=== PATIENT | female | born 1950 | race Caucasian/White ===

== ENCOUNTER 2022-03-20 14:05 | Emergency (ER) | payer MEDICARE, BC, SELFPAY ==
[2022-03-20 14:35] VITALS: BP 116/82; PULSE 69; RESP 18; TEMP 36.1; O2SAT 99; BMI 28.5
--- NOTE | 2022-03-20 18:06 | ED_ITS ---
HPI - Nausea/Vomiting/Diarrhea General Time Seen by Provider: 18:06 Date Seen: 03/20/22 Chief complaint: Nausea/Vomiting Stated complaint: Upset stomach since Time Seen by Provider: 03/20/22 18:06 Source: patient, RN notes reviewed and old records reviewed Mode of arrival: ambulatory Limitations: no limitations History of Present Illness HPI Narrative: Alma is a very pleasant female with a history of chronic back pain and neuropathy on Tylenol No. 3 as well as history of course spinal cord stimulator who comes to the emergency room with abdominal pain. Patient notes that she has been doing well until morning 1124. She states she woke up with an upset stomach that has been persistent since that time and waxing and waning. Patient denies any diarrhea. She has not been eating very much. She has tried to eat small amounts but she has significant nausea. She denies any fever but describes periods of hot flashes when she has to run outside. She is also tender across the upper aspect of her belly. She denies any distension or history of abdominal surgeries. She has not had any urinary pain but does describe urgency. She states she is otherwise healthy. Patient notes pain occasionally radiates around to her back. Denies any respiratory type symptoms. Associated nausea: Yes Related Data Home Medications Medication Instructions Recorded Confirmed acetaminophen 300 mg-codeine 30 mg 2 tab PO Q6H 03/20/22 03/20/22 tablet cyclobenzaprine 10 mg tablet 10 mg PO Q8H PRN 03/20/22 03/20/22 folic acid 1 mg tablet 1 mg PO DAILY 03/20/22 03/20/22 levothyroxine 50 mcg tablet 50 mcg PO DAILY 03/20/22 03/20/22 methotrexate sodium 2.5 mg tablet 10 mg PO .weekly 03/20/22 03/20/22 pilocarpine HCl 7.5 mg tablet 7.5 mg PO TID 03/20/22 03/20/22 pregabalin 150 mg capsule 150 mg PO Q8H 03/20/22 03/20/22 trazodone 50 mg tablet 50 mg PO DAILY 03/20/22 03/20/22 venlafaxine 37.5 mg 37.5 mg PO DAILY 03/20/22 03/20/22 capsule,extended release 24 hr Allergies Allergy/AdvReac Type Severity Reaction Status Date / Time No Known Drug Allergies Allergy Verified 03/20/22 19:48 Review of Systems Status of ROS: Reports: 10 or more systems reviewed and unremarkable except as noted in History and below Const: Reports: fatigue; Denies: fever or chills ENMT: Denies: throat pain or difficulty swallowing Cardio: Denies: chest pain, palpitations, swelling of feet/ankles, lightheadedness or shortness of breath with exertion Resp: Denies: shortness of breath or cough GI: Reports: abdominal pain and nausea; Denies: vomiting, diarrhea or difficulty swallowing : Reports: urinary frequency; Denies: painful urination Musculo: Reports: back pain (Chronic.) Neuro: Denies: headache, numbness in extremities or weakness in extremities Endo: Reports: fatigue PFSH PFSH Social History Smoking Status: Unknown if ever smoked Exam 2 Narrative: Exam Narrative: Patient is alert and oriented. She presents with her friend. Eyes are clear and oral cavity with moist mucous membranes. Face is symmetrical. No erythema or exudate in the posterior oropharynx. Neck is supple without lymphadenopathy Heart with regular rate and rhythm lungs are clear in all lung michele. Abdomen is soft but patient does have tenderness over the epigastrium and right upper quadrant. No significant rebound tenderness Lower extremities without edema. No evidence of pulsating mass in the abdomen and pedal pulses are intact and symmetrical Const: Vital Signs, click to edit/add: Vital Signs - 24 hr 03/20/22 14:35 03/20/22 21:52 Temperature 96.9 F L Pulse Rate [Right Pulse Oximeter] 69 65 Respiratory Rate 18 Blood Pressure [Ri ght Upper Arm] 116/82 145/77 H Pulse Oximetry 99 99 Oxygen Delivery Me thod Room Air Room Air Documenting provider has reviewed patient's vital signs: yes Course Course Hospital Course: Patient presents with 5 days of upper abdominal pain associated with anorexia and nausea. Will have an IV placed and check CBC, comprehensive panel, CRP, amylase, lipase, urinalysis. I suspect that she will be in need of a CT. For pain will give morphine 4 mg and Zofran 4 mg. Reevaluation(s) Reevaluation #1: Patient notes that she has improved with her pain medications. Laboratory values note normal kidney function therefore will proceed with abdominal CT with contrast. Reevaluation #2: Patient requesting further pain medications. Dilaudid 0.25 mg and Ativan 0.25 mg given with relief. Ultrasound pending Vital Signs Vital signs: Initial Vital Signs Temperature 96.9 F L 03/20/22 14:35 Temperature Source Temporal Artery Scan 03/20/22 14:35 Pulse Rate 69 03/20/22 14:35 Respiratory Rate 18 03/20/22 14:35 Blood Pressure 116/82 03/20/22 14:35 Blood Pressure Mean 93 03/20/22 14:35 Blood Pressure Position Sitting 03/20/22 14:35 Pulse Oximetry 99 03/20/22 14:35 Oxygen Delivery Method 03/20/22 14:35 Vital Signs Temperature 96.9 F L 03/20/22 14:35 Pulse Rate 69 03/20/22 14:35 Respiratory Rate 18 03/20/22 14:35 Blood Pressure 116/82 03/20/22 14:35 Pulse Oximetry 99 03/20/22 14:35 Oxygen Delivery Method 03/20/22 14:35 Temperature 96.9 F L 03/20/22 14:35 Pulse Rate 65 03/20/22 21:52 Respiratory Rate 18 03/20/22 14:35 Blood Pressure 145/77 H 03/20/22 21:52 Pulse Oximetry 99 03/20/22 21:52 Oxygen Delivery Method 03/20/22 21:52 MDM - Nausea/Vomiting/Diarrhea MDM Narrative Medical decision making narrative: 1. Abdominal pain-differential diagnosis does include biliary pop colic. CT showed distended gallbladder but no evidence of gallbladder wall thickening or pericholecystic fluid. Follow-up ultrasound showed large gallbladder and common bile duct at the upper limits of normal. I had the pleasure of consulting with Dr. Vera our surgeon here. At this time patient is tender to the touch but laboratory values again are very reassuring. Would recommend HIDA scan for to [facility] and follow-up with Dr. Vera. I did speak to Alma about staying tonight but she wishes to go home. I think this is reasonable as she has gotten fluids and has not had any vomiting. I will switch her from Tylenol No. 3 to hydrocodone temporarily. [place] 5/3 25 1-2 tablets p.o. q.4-6 hours p.r.n. pain 10. Via instant med[facility] with no refills. I have placed an order for a HIDA scan and told Alma that she will be called in the morning. She should also have a follow-up appoint with Dr. Vera. If however she has worsening symptoms such as fever, vomiting worsening pain would ask that she return to the emergency room for further evaluation. 2. Disposition -home at this time with her friend. Medical Records Attestation: I reviewed the patient's medical records. Lab Data Attestation: I reviewed the patient's lab results. Labs: Lab Results 03/20/22 03/20/22 03/20/22 Range/Units 18:31 18:40 18:40 WBC 10.05 (4.50-11.00) K/uL RBC 4.83 (4.00-5.20) m/uL Hgb 13.9 (12.0-16.0) gm/dL Hct 42.1 (33.0-51.0) % MCV 87 (80-100) fL MCH 29 (26-34) pg MCHC 33 (32-36) gm/dL RDW Coeff of Ricky 15.2 (11.5-15.5) % Plt Count 423 (140-440) K/uL Neut % (Auto) 49.4 (42.0-72.0) % Lymph % (Auto) 41.2 (20-44) % [place] % (Auto) 8.2 (0.0-11.0) % Eos % (Auto) 0.5 (0.0-7.0) % Baso % (Auto) 0.4 (0.0-3.0) % Neut # (Auto) 4.97 (1.7-7.0) K/uL Lymph # (Auto) 4.14 H (0.90-2.90) K/uL [place] # (Auto) 0.80 (0.00-0.90) K/UL Eos # (Auto) 0.05 (0.00-0.50) K/uL Baso # (Auto) 0.04 (0.00-0.30) K/uL Abs Immat Gran (auto) 0.03 (0.00-0.30) K/uL Imm/Tot Granulo (auto) 0.3 % Sodium 139 (135-149) mmol/L Potassium 3.3 L (3.6-5.1) mmol/L Chloride 102 (96-114) mmol/L Carbon Dioxide 25 (20-32) mmol/L BUN 17 (7-30) mg/dL Creatinine 0.6 (0.5-1.5) mg/dL Estimated Creat Clear 43.27 Estimated GFR 95 ml/min Glucose 97 (60-115) mg/dL Calcium 9.6 (8.4-10.6) mg/dL Total Bilirubin 0.9 (0.1-1.5) mg/dL AST 29 (12-35) U/L ALT 22 (4-35) U/L Alkaline Phosphatase 121 (40-150) U/L C-Reactive Protein 0.5 (0.5-1.0) mg/dL Total Protein 8.3 (6.0-8.3) g/dL Albumin 5.1 H (3.3-5.0) g/dL Amylase 53 (18-89) U/L Lipase 45 (23-300) U/L Urine Color Yellow (Yellow) Urine Appearance Clear (Clear) Urine pH 5.5 (5.0-8.5) Ur Specific [place] 1.020 (1.000-1.030) Urine Protein Negative (Negative) Urine Glucose (UA) Negative (Negative) Urine Ketones 2+ A (Negative) Urine Blood 2+ A (Negative) Urine Nitrite Negative (Negative) Urine Bilirubin Negative (Negative) Urine Urobilinogen 0.2 (0.2-1.0) Ur Leukocyte Esterase Negative (Negative) Urine RBC 0-2 (0-2) Urine WBC 0-2 (0-5) Ur Squamous Epith Cells None (None-Few) Urine Bacteria None (None) Imaging Data CT scan - abdomen: Attestation: I have reviewed the pertinent imaging results. Radiologist's impression: [place] [address] Diagnostic Imaging Report Patient: Alma Jacobs MR#: [id number] : 1950 Acct:[id number] Loc: ED Service Date: 03/20/[address]: Ordering Physician: Bettye Amaro MD Date of Service: 03/20/22 Procedure(s): CT abdomen pelvis w con Accession Number(s): [id number] cc: Bettye Amaro MD~ For Patients:? As a result of the Century Cures Act, medical imaging exams and procedure reports are released immediately into your electronic medical record.? You may view this report before your referring provider.? If you have questions, please contact your health care provider. INDICATION: Stomach pain. TECHNIQUE: CT abdomen and pelvis acquired with 81 mL Isovue 370 IV contrast. Coronal and sagittal reformats were generated. COMPARISON: None. FINDINGS: Lower chest: Unremarkable. Liver: Unremarkable. Gallbladder and bile ducts: Distended gallbladder. No radiopaque stones. No wall thickening or pericholecystic fluid. Spleen: Unremarkable. Pancreas: Diffuse atrophy. No ductal dilation. Adrenal glands: Unremarkable. No nodules. Kidneys and Ureters: Unremarkable. No suspicious masses, stones, or hydronephrosis. Lymph Nodes and Retroperitoneum: Unremarkable. Vasculature: Unremarkable. GI tract: Unremarkable. Normal in caliber. Diverticula project from the colon, without inflammatory changes to suggest diverticulitis. Peritoneum/Abdominal Wall: Unremarkable. No free air or free fluid. Pelvic Viscera: Exophytic hypodensity projecting from the anterior uterus is probably a fibroid. Smaller posterior lesion also projects exophytically, likely a fibroid. Bladder: Unremarkable. Bones: Unremarkable for age. Spinal stimulator device has its battery pack in the left posterior subcutaneous tissues. IMPRESSION: No significant CT abnormality or findings to explain the cause of the patient`s symptoms. Please note that all CT scans at this facility use dose modulation, iterative reconstruction, and/or weight-based dosing when appropriate to reduce radiation dose to as low as reasonably achievable. US - abdomen: Attestation: I have reviewed the pertinent imaging results. Radiologist's impression: Liver: Mild diffuse increased hepatic echogenicity. No suspicious masses.? No intrahepatic biliary dilatation.? Gallbladder: Hydropic. No stones or sludge.? Normal wall thickness.? No pericholecystic fluid. Negative sonographic Chandler`s sign per the in home sales representative. Common bile duct: 8 mm, at upper limits of normal.? Pancreas: Unremarkable.? Right kidney: Normal in size.? Normal echotexture and cortex.? No suspicious masses, stones, or hydronephrosis. Vasculature: Proximal abdominal aorta and IVC are unremarkable.? IMPRESSION: Hydropic gallbladder without cholelithiasis or evidence of cholecystitis. 8 mm common bile duct, which is at the upper limits of normal for the patient`s age. Cannot entirely exclude choledocholithiasis. MRCP is available if clinical concern persists. Discharge Plan Discharge Clinical Impression: Abdominal pain Patient Disposition: Home, Self-Care Condition: Improved Additional Instructions: . Tylenol with codeine. You may use hydrocodone which is also known as [place] or Vicodin and consists of the narcotic hydrocodone and acetaminophen or Tylenol. Await phone call tomorrow for appointment for HIDA scan and follow up with Dr. Vera surgeon or 1 of her colleagues tomorrow. If you start running a fever or have worsening symptoms return to the emergency room. Prescriptions: No Action acetaminophen-codeine 300-30 mg tablet 2 tab PO Q6H Label Comments: TAKE ONE OR TWO TABLETS BY MOUTH THREE TIMES DAILY NEEDED FOR PAIN. DO NOT EXCEED 4000MG OF ACETAMINOPHEN IN 24 HOURS cyclobenzaprine 10 mg tablet 10 mg PO Q8H PRN Label Comments: TAKE ONE TABLET BY MOUTH TWICE DAILY NEEDED folic acid 1 mg tablet 1 mg PO DAILY Label Comments: TAKE ONE TABLET BY MOUTH ONE TIME DAILY levothyroxine 50 mcg tablet 50 mcg PO DAILY Label Comments: TAKE ONE TABLET BY MOUTH ONE TIME DAILY methotrexate sodium 2.5 mg tablet 10 mg PO .weekly Label Comments: TAKE 4 TABLETS BY MOUTH ONCE WEEKLY. pilocarpine HCl 7.5 mg tablet 7.5 mg PO TID Label Comments: TAKE ONE TABLET BY MOUTH THREE TIMES DAILY pregabalin 150 mg capsule 150 mg PO Q8H Label Comments: TAKE ONE CAPSULE BY MOUTH THREE TIMES DAILY trazodone 50 mg tablet 50 mg PO DAILY Label Comments: TAKE ONE OR TWO TABLETS BY MOUTH DAILY AT BEDTIME venlafaxine 37.5 mg capsule,extended release 24hr 37.5 mg PO DAILY Label Comments: TAKE ONE CAPSULE BY MOUTH ONE TIME DAILY WITH A MEAL. Stand Alone Forms: [email or web address] Info Instructions
[2022-03-20] MEDS: ONDANSETRON 2 MG/ML inj 4 MG IVP (18:48)
[2022-03-20] MEDS: MORPHINE 4 MG/ML INJ IVP (18:48)
[2022-03-20] MEDS: 0.9 % SODIUM CHLORIDE 1000 ml 1,000 ML IV (18:48)
[2022-03-20 19:12] LABS: Albumin* 5.1 g/dL (3.3-5.0); Chloride* 102 mmol/L (96-114); Sodium* 139 mmol/L (135-149)
[2022-03-20 19:13] LABS: Potassium* 3.3 mmol/L (3.6-5.1)
[2022-03-20 19:15] LABS: Amylase* 53 U/L (18-89); Carbon Dioxide* 25 mmol/L (20-32); Creatinine* 0.6 mg/dL (0.5-1.5); Est. Creatinine Clearance* 43.27; Estimated Glomerular Filt Rate 95 ml/min
[2022-03-20 19:16] LABS: Alanine Aminotransferase* 22 U/L (4-35); Alkaline Phosphatase* 121 U/L (40-150); Aspartate Amino Transferase* 29 U/L (12-35); Bilirubin Total* 0.9 mg/dL (0.1-1.5); Blood Urea Nitrogen* 17 mg/dL (7-30); Calcium* 9.6 mg/dL (8.4-10.6); Glucose* 97 mg/dL (60-115); Lipase* 45 U/L (23-300); Total Protein* 8.3 g/dL (6.0-8.3)
[2022-03-20 19:18] LABS: C Reactive Protein* 0.5 mg/dL (0.5-1.0)
[2022-03-20 19:28] LABS: Basophils Absolute Auto 0.04 K/uL (0.00-0.30); Basophils Percent Auto 0.4 % (0.0-3.0); Eosinophils Absolute Auto 0.05 K/uL (0.00-0.50); Eosinophils Percent Auto 0.5 % (0.0-7.0); Hematocrit 42.1 % (33.0-51.0); Hemoglobin* 13.9 gm/dL (12.0-16.0); Immature Granulocytes Abs Auto 0.03 K/uL (0.00-0.30); Immature Granulocytes Pct Auto 0.3 %; Lymphocytes Absolute Auto 4.14 K/uL (0.90-2.90); Lymphocytes Percent Auto 41.2 % (20-44); Mean Corpuscular HGB Conc 33 gm/dL (32-36); Mean Corpuscular Hemoglobin 29 pg (26-34); Mean Corpuscular Volume 87 fL (80-100); Monocytes Percent Auto 8.2 % (0.0-11.0); Neutrophils Absolute Auto 4.97 K/uL (1.7-7.0); Neutrophils Percent Auto 49.4 % (42.0-72.0); Platelet Count* 423 K/uL (140-440); RDW Coefficient of Variation % 15.2 % (11.5-15.5); Red Blood Count 4.83 m/uL (4.00-5.20); White Blood Count* 10.05 K/uL (4.50-11.00)
--- NOTE | 2022-03-20 19:28 | CRLHL7_ITS ---
For Patients: As a result of the Century Cures Act, medical imaging exams and procedure reports are released immediately into your electronic medical record. You may view this report before your referring provider. If you have questions, please contact your health care provider. INDICATION: Stomach pain. TECHNIQUE: CT abdomen and pelvis acquired with 81 mL Isovue 370 IV contrast. Coronal and sagittal reformats were generated. COMPARISON: None. FINDINGS: Lower chest: Unremarkable. Liver: Unremarkable. Gallbladder and bile ducts: Distended gallbladder. No radiopaque stones. No wall thickening or pericholecystic fluid. Spleen: Unremarkable. Pancreas: Diffuse atrophy. No ductal dilation. Adrenal glands: Unremarkable. No nodules. Kidneys and Ureters: Unremarkable. No suspicious masses, stones, or hydronephrosis. Lymph Nodes and Retroperitoneum: Unremarkable. Vasculature: Unremarkable. GI tract: Unremarkable. Normal in caliber. Diverticula project from the colon, without inflammatory changes to suggest diverticulitis. Peritoneum/Abdominal Wall: Unremarkable. No free air or free fluid. Pelvic Viscera: Exophytic hypodensity projecting from the anterior uterus is probably a fibroid. Smaller posterior lesion also projects exophytically, likely a fibroid. Bladder: Unremarkable. Bones: Unremarkable for age. Spinal stimulator device has its battery pack in the left posterior subcutaneous tissues. IMPRESSION: No significant CT abnormality or findings to explain the cause of the patient`s symptoms. Please note that all CT scans at this facility use dose modulation, iterative reconstruction, and/or weight-based dosing when appropriate to reduce radiation dose to as low as reasonably achievable. Dictated by Joao Nazario MD @ 03/20/2022 8:23:57 PM (Electronically Signed)
[2022-03-20 19:30] LABS: Slide Review Reflex No
--- NOTE | 2022-03-20 20:30 | CRLHL7_ITS ---
For Patients: As a result of the Century Cures Act, medical imaging exams and procedure reports are released immediately into your electronic medical record. You may view this report before your referring provider. If you have questions, please contact your health care provider. INDICATION: Right upper quadrant abdomen pain. TECHNIQUE: Ultrasound abdomen limited. Sonographic images of the right upper quadrant were obtained using armendariz-scale and color Doppler images. COMPARISON: CT abdomen from the same day. FINDINGS: Liver: Mild diffuse increased hepatic echogenicity. No suspicious masses. No intrahepatic biliary dilatation. Gallbladder: Hydropic. No stones or sludge. Normal wall thickness. No pericholecystic fluid. Negative sonographic Chandler`s sign per the rheumatologist. Common bile duct: 8 mm, at upper limits of normal. Pancreas: Unremarkable. Right kidney: Normal in size. Normal echotexture and cortex. No suspicious masses, stones, or hydronephrosis. Vasculature: Proximal abdominal aorta and IVC are unremarkable. IMPRESSION: Hydropic gallbladder without cholelithiasis or evidence of cholecystitis. 8 mm common bile duct, which is at the upper limits of normal for the patient`s age. Cannot entirely exclude choledocholithiasis. MRCP is available if clinical concern persists. Dictated by Santino Berumen MD @ 03/20/2022 9:58:25 PM (Electronically Signed)
[2022-03-20] MEDS: HYDROmorphone 0.5 mg/0.5 ml inj 0.25 MG IVP (20:54)
[2022-03-20] MEDS: LORazepam 2 MG/ML inj 0.25 MG IVP (20:54)
[2022-03-20 21:52] VITALS: BP 145/77; PULSE 65; O2SAT 99
[2022-03-20 22:11] LABS: Appearance Urine Clear (Clear); Bilirubin Urine Negative (Negative); Blood Urine 2+ (Negative); Color Urine Yellow (Yellow); Glucose Urine Negative (Negative); Ketones Urine 2+ (Negative); Leukocyte Esterase Urine Negative (Negative); Nitrite Urine Negative (Negative); Protein Urine Negative (Negative); Urobilinogen Urine 0.2 (0.2-1.0); pH Urine 5.5 (5.0-8.5)
[2022-03-20 22:16] LABS: RBC Urine 0-2 (0-2); WBC Urine 0-2 (0-5)
== END 2022-03-20 23:07 | disposition home or self-care (01) ==
PROVIDERS: Emergency Provider Family Medicine; PCP Physician Assistant Medical
DX: R10.9 Unspecified abdominal pain (principal)
CPT/HCPCS: 36415; 74177; 76705; 80053; 81001; 82150; 83690; 85025; 86140; 96374; 96375; 99284; J1170; J2060; J2270; J2405; J7030; Q9967

== ENCOUNTER 2022-03-23 10:17 | Day surgery (SDC) | payer MEDICARE, BC, SELFPAY ==
[2022-03-23] VITALS (14 sets, daily range): BP systolic 106–164; BP diastolic 60–95; PULSE 58–70; RESP 16; TEMP 35.9–36.6; O2SAT 97–98; BMI 28.3
--- NOTE | 2022-03-23 10:33 | SUR.PREOP ---
Home COVID test confirmed negative by rewriter.
[2022-03-23] MEDS: LACTATED RINGERS 1000 ML 1,000 ML 100 ML IV (11:00)
[2022-03-23] MEDS: SODIUM CHLORIDE 0.9 % (FLUSH) 10 ML SYRINGE IVF (11:21)
[2022-03-23] MEDS: CEFAZOLIN 2 GM INJ IVP (12:28)
[2022-03-23] MEDS: BUPIVACAINE 0.5% 30 ML INJECTION (12:37)
--- NOTE | 2022-03-23 12:37 | W.ANESCHARGE ---
Anesthesia Charges Start Date/Time Anesthesia Start Date: 03/23/22 Anesthesia Start Time: 12:19 Stop Date/Time Anesthesia Stop Date: 03/23/22 Anesthesia Stop Time: 14:05 Summary Emergency: No Extremes of Age: Over 69-CPT 12576
--- NOTE | 2022-03-23 12:57 | W.ANESCHARGE ---
Anesthesia Charges Start Date/Time Anesthesia Start Date: 03/23/22 Anesthesia Start Time: 12:19 Stop Date/Time Anesthesia Stop Date: 03/23/22 Anesthesia Stop Time: 14:05 Summary Emergency: No Extremes of Age: Over 69-CPT 68099
--- NOTE | 2022-03-23 13:45 | P.GSOP_ITS ---
Operative Note Date of procedure: 03/23/22 Type of Procedure: Laparoscopic cholecystectomy Procedure Description: After discussing the risks and benefits of the procedure, the patient signed informed consent.? The operative site was marked and the patient was brought to the operating room and placed on the operating table in supine position.? Care was taken to pad the patient's pressure points.?? The patient was then intubated by anesthesia.?? The operative site was then prepped and draped in the usual sterile fashion.? A time-out was then performed. Entrance to the abdomen was gained via a 5 mm Visiport in the left upper quadrant. The abdomen was insufflated and briefly surveyed for signs of injury. There was none. 11 mm umbilical port was placed as well as 2 working ports along the right costal margin. Patient was then placed in reverse Trendelenburg position with the right side up. The gallbladder fundus was grasped and retracted cephalad. [A small amount of dissection was needed to free omental adhesions from the gallbladder.] The infundibulum was grasped. A combination of hook cautery and blunt dissection was used to carefully dissect out the cystic duct and artery until they could clearly be seen entering the gallbladder without any intervening structures. The gallbladder was dissected off the cystic plate to achieve the critical view. Once this was achieved the cystic duct and artery were each clipped with 2 clips proximally and 1 clip distally and transected with the scissors. A branch of the cystic duct was extending posterior and onto the gallbladder. This was clipped and transected. The gallbladder was then taken off of the liver bed. And removed from the abdomen using an Endo-Catch bag. The gallbladder bed was surveyed for hemostasis. A superficial large vein was within the gallbladder fossa. A small amount of bl eeding was seen this large vascular structure. Surgicel was applied to the area for 5 minutes and clips were applied proximal and distal to this bleeding for hemostasis. Skyler was also placed within the gallbladder fossa. At the end of the maneuvers the hemostasis was excellent. The umbilical port fascia was closed with 0 Vicryl. The remaining ports were then closed under direct visualization. The skin was closed with absorbable subcuticular suture. Instrument sponge and needle counts were correct at the end of the case. The patient was then woken and transferred to the PACU in stable condition. ? Findings: Distended gallbladder. Anesthesia: GETA Surgeon: Idalia Lynn MD Estimated blood loss (mL): 15 Condition: stable Disposition: same day
[2022-03-23] MEDS: fentaNYL 100 MCG/2 ML inj 50 MCG IVP ×2 (14:10→14:18)
[2022-03-23] MEDS: METOCLOPRAMIDE HCL 5 MG/ML INJ 10 MG IVP (14:28)
[2022-03-23] MEDS: HYDROmorphone 0.5 mg/0.5 ml inj IVP (14:29)
[2022-03-23] MEDS: KETOROLAC 15 MG/ML inj IVP (14:41)
[2022-03-23] MEDS: ACETAMINOPHEN 1,000 MG/100 ML INJ 1000 MG IVPB (14:41)
[2022-03-23] MEDS: HYDROCODONE-ACETAMIN 5-325 MG 1 TAB PO ×2 (15:13→15:47)
== END 2022-03-23 15:55 | disposition home or self-care (01) ==
PROVIDERS: PCP Physician Assistant Medical; Visit Provider Surgery
PROC: 0FT44ZZ Resection of Gallbladder, Percutaneous Endoscopic Approach (ICD-10-PCS; CPT 47562; principal; 2022-03-23 11:15)
DX: K81.1 Chronic cholecystitis (principal)
CPT/HCPCS: 47562; 00790; 88304; 99100; A9270; J0131; J0690; J1100; J1170; J1885; J2405; J2704; J2710; J2765; J3010; J3490; J7120

== ENCOUNTER 2022-12-13 12:13 | Emergency (ER) | payer MEDICARE, BC, SELFPAY ==
[2022-12-13 12:24] VITALS: BP 109/72; PULSE 83; RESP 16; TEMP 36.8; O2SAT 99; BMI 29.2
--- NOTE | 2022-12-13 12:52 | ED.GENADULT ---
HPI - General Adult General Chief complaint: Skin/Abscess/Foreign Body Stated complaint: Face red/swelling Time Seen by Provider: 12/13/22 12:22 History of Present Illness HPI narrative: Patient is a 72 white female for a couple of days has had rash on her cheeks swelling about her maxillary sinus area and little broader inferior orbital area. It does not affect her vision, she has not had any marked fevers or chills, no shortness of breath chest pain. She reports she had some black and she was picking on both sides of her face and thinks that may have originated as well as with a recent URI. She has no drug allergies. She does take methotrexate, Synthroid Rituxan and chronic pain management with hydrocodone acetaminophen. Denies skin infections, she is up-to-date on her tetanus in 2019. Related Data Home Medications Medication Instructions Recorded Confirmed cyclobenzaprine 10 mg tablet 10 mg PO Q8H PRN 03/20/22 12/13/22 folic acid 1 mg tablet 1 mg PO DAILY 03/20/22 12/13/22 levothyroxine 50 mcg tablet 50 mcg PO DAILY 03/20/22 12/13/22 methotrexate sodium 2.5 mg tablet 10 mg PO .weekly 03/20/22 12/13/22 pregabalin 150 mg capsule 150 mg PO Q8H 03/20/22 12/13/22 rituximab 10 mg/mL IV 03/23/22 concentrate,intravenous (Rituxan) Previous Rx's Medication Instructions Recorded hydrocodone 5 mg-acetaminophen 325 1 - 2 tab PO Q6H PRN pain #10 tabs 03/23/22 mg tablet amoxicillin 875 mg-potassium 1 tab PO BID #10 tabs 12/13/22 clavulanate 125 mg tablet prednisone 20 mg tablet 20 mg PO BID #10 tabs 12/13/22 Allergies Allergy/AdvReac Type Severity Reaction Status Date / Time No Known Drug Allergies Allergy Verified 12/13/22 12:31 Review of Systems Status of ROS: Reports: 6 or more systems reviewed and unremarkable except as noted in History and below [facility] Medical History Vitamin D deficiency disease ?E55.9 - Vitamin D deficiency, unspecified (ICD-10) Atrial fibrillation ?I48.91 - Unspecified atrial fibrillation (ICD-10) Meningioma ?D32.9 - Benign neoplasm of meninges, unspecified (ICD-10) Other encephalopathy ?G93.49 - Other encephalopathy (ICD-10) Uncomplicated opioid dependence ?F11.20 - Opioid dependence, uncomplicated (ICD-10) Controlled substance agreement signed ?Z79.899 - Other shelter (current) drug therapy (ICD-10) Pain disorder with related psychological factors ?F45.42 - Pain disorder with related psychological factors (ICD-10) 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 - Lin's granulomatosis without renal involvement (ICD-10) Spondylosis without myelopathy or radiculopathy, lumbar region ?M47.816 - Spondylosis without myelopathy or radiculopathy, lumbar region (ICD-10) Rheumatoid arthritis ?M06.9 - Rheumatoid arthritis, unspecified (ICD-10) Fibromyalgia ?M79.7 - Fibromyalgia (ICD-10) Abnormal ANCA test ?R76.8 - Other specified abnormal immunological findings in serum (ICD-10) Chronic pain ?G89.29 - Other chronic pain (ICD-10) MARY (generalized anxiety disorder) ?F41.1 - Generalized anxiety disorder (ICD-10) Peripheral neuritis ?G62.9 - Polyneuropathy, unspecified (ICD-10) CAD (coronary artery disease) ?I25.10 - Atherosclerotic heart disease of [place] coronary artery without angina pectoris (ICD-10) Cervical disc disorder with radiculopathy ?M50.10 - Cervical disc disorder with radiculopathy, unspecified cervical region (ICD-10) Fibroids ?D21.9 - Benign neoplasm of connective and other soft tissue, unspecified (ICD-10) Diverticulosis large intestine w/o perforation or abscess w/o bleeding ?K57.30 - Diverticulosis of large intestine without perforation or abscess without bleeding (ICD-10) GERD (gastroesophageal reflux disease) ?K21.9 - Gastro-esophageal reflux disease without esophagitis (ICD-10) Major depressive disorder, recurrent episode ?F33.9 - Major depressive disorder, recurrent, unspecified (ICD-10) PTSD (post-traumatic stress disorder) ?F43.10 - Post-traumatic stress disorder, unspecified (ICD-10) Insomnia ?G47.00 - Insomnia, unspecified (ICD-10) Meckel's diverticulitis ?Q43.0 - Meckel's diverticulum (displaced) (hypertrophic) (ICD-10) Surgical History History of left salpingo-oophorectomy ?Z90.79 - Acquired absence of other genital organ(s) (ICD-10) ?Z90.721 - Acquired absence of ovaries, unilateral (ICD-10) History of right oophorectomy ?Z90.721 - Acquired absence of ovaries, unilateral (ICD-10) H/O colonoscopy ?Z98.890 - Other specified postprocedural states (ICD-10) H/O esophagogastroduodenoscopy ?Z98.890 - Other specified postprocedural states (ICD-10) Social History Smoking Status: Never smoker How often do you have a drink containing alcohol: monthly or less AUDIT-C Alcohol total score: 1 Non-prescribed substance use: marijuana (any form) Non-prescribed substance use details: 03/09/22 Are you using contraception or practicing any form of control: No Exam Narrative: Exam Narrative: Objective in general patient is no apparent distress, she has obvious facial rash bilaterally Patient is vital signs unremarkable she is afebrile HEENT shows pupils react to light no scleral involvement There is facial swelling over maxillary sinuses bilaterally and there is some superficial scaling at the middle of the cheeks bilaterally there just minimally warm but not markedly warm they are slightly reddened Mouth is clear Stable open her mouth no trismus Neck is supple Neurologic is grossly nonfocal Const: Vital Signs, click to edit/add: Vital Signs - 24 hr 12/13/22 12:24 12/13/22 13:24 12/13/22 13:29 Temperature 98.3 F Pulse Rate [Pulse Oximeter] 83 85 83 Respiratory Rate 16 Blood Pressure [Ri ght Upper Arm] 109/72 109/69 120/95 H Pulse Oximetry 99 96 Oxygen Delivery Me thod Room Air Course Vital Signs Vital signs: Initial Vital Signs Temperature 98.3 F 12/13/22 12:24 Temperature Source Temporal Artery Scan 12/13/22 12:24 Pulse Rate 83 12/13/22 12:24 Respiratory Rate 16 12/13/22 12:24 Blood Pressure 109/72 12/13/22 12:24 Blood Pressure Mean 84 12/13/22 12:24 Blood Pressure Position Sitting 12/13/22 12:24 Pulse Oximetry 99 12/13/22 12:24 Oxygen Delivery Method Room Air 12/13/22 12:24 Vital Signs Temperature 98.3 F 12/13/22 12:24 Pulse Rate 83 12/13/22 12:24 Respiratory Rate 16 12/13/22 12:24 Blood Pressure 109/72 12/13/22 12:24 Pulse Oximetry 99 12/13/22 12:24 Oxygen Delivery Method Room Air 12/13/22 12:24 Temperature 98.3 F 12/13/22 12:24 Pulse Rate 83 12/13/22 13:29 Respiratory Rate 16 12/13/22 12:24 Blood Pressure 120/95 H 12/13/22 13:29 Pulse Oximetry 96 12/13/22 13:24 Oxygen Delivery Method Room Air 12/13/22 12:24 Medical Decision Making MDM Narrative Medical decision making narrative: Patient is a 72-year-old female with history of bilateral facial rash possible allergic reaction, versus mild cellulitis an allergy. The patient I think at this time would benefit from Rocephin IM, and oral prednisone. Will have her start prednisone 20 mg b.i.d. starting tomorrow x5 days, Augmentin 875 b.i.d. x5 days as well. Recommend follow-up with primary care in the next 24 hours to make sure this isn't worsening, return to ED sooner problems or concerns she was comfortable this plan she feels comfortable going home. We will set up an appointment for to see align a tomorrow. Discharge Plan Discharge Clinical Impression: Cellulitis Patient Disposition: Home, Self-Care Condition: Stable Additional Instructions: Follow up appointment is scheduled at the [facility] on 12/14 with a 2:50pm appointment time. Please arrive a few minutes early to check in. If you have any questions or need to reschedule, please call [phone]. [facility] [address] [place] [address] Start the antibiotic today, start the oral prednisone tomorrow, warm pack to the face 3 to 5 times a day, appoint with a line a tomorrow as mention. Return to ED sooner any difficulty breathing tongue swelling or other issues that occur. Prescriptions: New prednisone 20 mg tablet 20 mg PO BID Qty: 10 0RF amoxicillin-pot clavulanate 875-125 mg tablet 1 tab PO BID Qty: 10 0RF No Action cyclobenzaprine 10 mg tablet 10 mg PO Q8H PRN Patient Comments: TAKE ONE TABLET BY MOUTH TWICE DAILY NEEDED folic acid 1 mg tablet 1 mg PO DAILY Patient Comments: TAKE ONE TABLET BY MOUTH ONE TIME DAILY levothyroxine 50 mcg tablet 50 mcg PO DAILY Patient Comments: TAKE ONE TABLET BY MOUTH ONE TIME DAILY methotrexate sodium 2.5 mg tablet 10 mg PO .weekly Patient Comments: TAKE 4 TABLETS BY MOUTH ONCE WEEKLY. pregabalin 150 mg capsule 150 mg PO Q8H Patient Comments: TAKE ONE CAPSULE BY MOUTH THREE TIMES DAILY Rituxan 10 mg/mL concentrate IV hydrocodone-acetaminophen 5-325 mg tablet 1 - 2 tab PO Q6H PRN (Reason: pain) Qty: 10 0RF Follow Up/Referrals: Rylee Ley PAKaushalC [Primary Care Provider] - Stand Alone Forms: [facility] Info Instructions
[2022-12-13] MEDS: predniSONE 10 MG TABLET 50 MG PO (13:12)
[2022-12-13] MEDS: cefTRIAXone 1 GM VIAL IM (13:13)
[2022-12-13 13:24] VITALS: BP 109/69; PULSE 85; O2SAT 96
[2022-12-13 13:29] VITALS: BP 120/95; PULSE 83
== END 2022-12-13 13:30 | disposition home or self-care (01) ==
LOC: ED 12:59
PROVIDERS: Emergency Provider Family Medicine; PCP Physician Assistant Medical
DX: L03.211 Cellulitis of face (principal)
CPT/HCPCS: 96372; 99283; J0696; J7512

== ENCOUNTER 2022-12-31 10:29 | Emergency (ER) | payer MEDICARE, BC, SELFPAY ==
[2022-12-31 10:39] VITALS: BP 91/58; PULSE 72; RESP 22; TEMP 37.1; O2SAT 97; BMI 29.2
--- NOTE | 2022-12-31 11:02 | ED_ITS ---
HPI - General Adult General Time Seen by Provider: 11:02 Date Seen: 12/31/22 Chief complaint: Sore Throat Stated complaint: Fatigue, sore throat Time Seen by Provider: 12/31/22 11:01 Source: patient and RN notes reviewed Mode of arrival: ambulatory Limitations: no limitations History of Present Illness HPI narrative: This 72-year-old female is coming in with concern of possible COVID. She was exposed to someone on , felt fine until yesterday. Started developing a sore throat yesterday. She feels like she is becoming more fatigued, losing her energy. Has not noted any fevers. Not really coughing yet but does feel some nasal congestion. No nausea vomiting or diarrhea but feels like she has a diminished appetite today. She had COVID a few years ago. She is not on any blood thinners. She does feel little bit of sense of shortness of breath but is oxygenating excellently on room air. She is on immune modulating drugs with Rituxan, denies any blood thinner use. Related Data Home Medications Medication Instructions Recorded Confirmed cyclobenzaprine 10 mg tablet 10 mg PO Q8H PRN 03/20/22 12/13/22 folic acid 1 mg tablet 1 mg PO DAILY 03/20/22 12/13/22 levothyroxine 50 mcg tablet 50 mcg PO DAILY 03/20/22 12/31/22 methotrexate sodium 2.5 mg tablet 10 mg PO .weekly 03/20/22 12/31/22 pregabalin 150 mg capsule 150 mg PO Q8H 03/20/22 12/13/22 rituximab 10 mg/mL IV 03/23/22 concentrate,intravenous (Rituxan) Previous Rx's Medication Instructions Recorded hydrocodone 5 mg-acetaminophen 325 1 - 2 tab PO Q6H PRN pain #10 tabs 03/23/22 mg tablet amoxicillin 875 mg-potassium 1 tab PO BID #10 tabs 12/13/22 clavulanate 125 mg tablet prednisone 20 mg tablet 20 mg PO BID #10 tabs 12/13/22 nirmatrelvir 150 mg-ritonavir 100 See Rx Instructions PO .COMPLEX 12/31/22 mg tablets in a dose pack #20 ea (Paxlovid) Allergies Allergy/AdvReac Type Severity Reaction Status Date / Time No Known Drug Allergies Allergy Verified 12/31/22 10:38 Review of Systems Status of ROS: Reports: 6 or more systems reviewed and unremarkable except as noted in History and below [facility] Medical History Vitamin D deficiency disease ?E55.9 - Vitamin D deficiency, unspecified (ICD-10) Atrial fibrillation ?I48.91 - Unspecified atrial fibrillation (ICD-10) Meningioma ?D32.9 - Benign neoplasm of meninges, unspecified (ICD-10) Other encephalopathy ?G93.49 - Other encephalopathy (ICD-10) Uncomplicated opioid dependence ?F11.20 - Opioid dependence, uncomplicated (ICD-10) Controlled substance agreement signed ?Z79.899 - Other director long term care (current) drug therapy (ICD-10) Pain disorder with related psychological factors ?F45.42 - Pain disorder with related psychological factors (ICD-10) 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 - Lin's granulomatosis without renal involvement (ICD-10) Spondylosis without myelopathy or radiculopathy, lumbar region ?M47.816 - Spondylosis without myelopathy or radiculopathy, lumbar region (ICD-10) Rheumatoid arthritis ?M06.9 - Rheumatoid arthritis, unspecified (ICD-10) Fibromyalgia ?M79.7 - Fibromyalgia (ICD-10) Abnormal ANCA test ?R76.8 - Other specified abnormal immunological findings in serum (ICD-10) Chronic pain ?G89.29 - Other chronic pain (ICD-10) MARY (generalized anxiety disorder) ?F41.1 - Generalized anxiety disorder (ICD-10) Peripheral neuritis ?G62.9 - Polyneuropathy, unspecified (ICD-10) CAD (coronary artery disease) ?I25.10 - Atherosclerotic heart disease of [place] coronary artery without angina pectoris (ICD-10) Cervical disc disorder with radiculopathy ?M50.10 - Cervical disc disorder with radiculopathy, unspecified cervical region (ICD-10) Fibroids ?D21.9 - Benign neoplasm of connective and other soft tissue, unspecified (ICD-10) Diverticulosis large intestine w/o perforation or abscess w/o bleeding ?K57.30 - Diverticulosis of large intestine without perforation or abscess without bleeding (ICD-10) GERD (gastroesophageal reflux disease) ?K21.9 - Gastro-esophageal reflux disease without esophagitis (ICD-10) Major depressive disorder, recurrent episode ?F33.9 - Major depressive disorder, recurrent, unspecified (ICD-10) PTSD (post-traumatic stress disorder) ?F43.10 - Post-traumatic stress disorder, unspecified (ICD-10) Insomnia ?G47.00 - Insomnia, unspecified (ICD-10) Meckel's diverticulitis ?Q43.0 - Meckel's diverticulum (displaced) (hypertrophic) (ICD-10) Surgical History History of left salpingo-oophorectomy ?Z90.79 - Acquired absence of other genital organ(s) (ICD-10) ?Z90.721 - Acquired absence of ovaries, unilateral (ICD-10) History of right oophorectomy ?Z90.721 - Acquired absence of ovaries, unilateral (ICD-10) H/O colonoscopy ?Z98.890 - Other specified postprocedural states (ICD-10) H/O esophagogastroduodenoscopy ?Z98.890 - Other specified postprocedural states (ICD-10) Social History Smoking Status: Never smoker How often do you have a drink containing alcohol: monthly or less AUDIT-C Alcohol total score: 1 Non-prescribed substance use: marijuana (any form) Non-prescribed substance use details: 03/09/22 Are you using contraception or practicing any form of control: No Exam Const: Vital Signs, click to edit/add: Vital Signs - 24 hr 12/31/22 10:39 Temperature 98.7 F Pulse Rate [Pulse Oximeter] 72 Respiratory Rate 22 Blood Pressure [Ri ght Upper Arm] 91/58 L Pulse Oximetry 97 Oxygen Delivery Me thod Room Air 72-year-old female sitting up on the bed in exam room 1. She is alert, i nteractive, no apparent distress. It will to speak in complete sentences, no hoarseness or voice changes noted. Pupils are equal and round, sclera clear, conjugate gaze. Normal symmetrical facial function, oropharynx with well- hydrated mucosa, no posterior pharyngeal changes, certainly no exudates or erythema noted in the pharynx. Neck is supple, no cervical adenopathy. Lungs are clear, good air entry, no wheezing or crackles, no tachypnea. CV regular rate and rhythm, no murmur. No lower extremity edema. Documenting provider has reviewed patient's vital signs: yes Course Course ED Course: We will await the viral swab to come back. Have preemptively talked to patient about Paxilovid for treatment of COVID should she come back positive. She would like to consider using this medicine if she is positive. I have looked in her records, in February of 2022, creatinine was normal at 0.6 but given her age, gives her creatinine clearance in the 40s. Thus, would likely benefit from the dose reduction if we are going to use this medicine. Reevaluation(s) Time of Reevaluation #1: 11:39 Reevaluation #1: Have reviewed with patient that she is COVID positive. We reviewed Paxilovid, went over risks benefits and some of the side effects. She would like to proceed with treatment. Vital Signs Vital signs: Initial Vital Signs Temperature 98.7 F 12/31/22 10:39 Temperature Source Temporal Artery Scan 12/31/22 10:39 Pulse Rate 72 12/31/22 10:39 Respiratory Rate 22 12/31/22 10:39 Blood Pressure 91/58 L 12/31/22 10:39 Blood Pressure Mean 69 L 12/31/22 10:39 Blood Pressure Position Sitting 12/31/22 10:39 Pulse Oximetry 97 12/31/22 10:39 Oxygen Delivery Method Room Air 12/31/22 10:39 Vital Signs Temperature 98.7 F 12/31/22 10:39 Pulse Rate 72 12/31/22 10:39 Respiratory Rate 22 12/31/22 10:39 Blood Pressure 91/58 L 12/31/22 10:39 Pulse Oximetry 97 12/31/22 10:39 Oxygen Delivery Method Room Air 12/31/22 10:39 Temperature 98.7 F 12/31/22 10:39 Pulse Rate 72 12/31/22 10:39 Respiratory Rate 22 12/31/22 10:39 Blood Pressure 91/58 L 12/31/22 10:39 Pulse Oximetry 97 12/31/22 10:39 Oxygen Delivery Method Room Air 12/31/22 10:39 Medical Decision Making Lab Data Lab results reviewed: Yes I reviewed the patient's lab results Labs: Lab Results 12/31/22 Range/Units 10:44 SARS-CoV-2 (PCR) POSITIVE SARS-CoV-2 A (Negative) Influenza Type A (PCR) Negative PCR FLU A (Negative) Influenza Type B (PCR) Negative PCR FLU B (Negative) RSV (PCR) Negative PCR RSV (Negative) Critical Care Time Critical Care Time Critical Care Time: No Discharge Plan Discharge Clinical Impression: COVID-19 Patient Disposition: Home, Self-Care Condition: Stable Instructions: COVID-19 (Coronavirus Disease 2019) (ED), COVID-19: Slow the Coronavirus Spread (ED) Additional Instructions: Start Paxilovid today and take as prescribed. Review handouts, if you are worsening with difficulty breathing, shortness of breath, chest pain or other concerns, please seek re-evaluation. Need to quarantine per CDC guidelines. Activity Level: Activity as Tolerated Prescriptions: New Paxlovid 150-100 mg tablets,dose pack See Rx Instructions .ROUTE .COMPLEX Qty: 20 0RF Rx Instructions: orally per package directions No Action prednisone 20 mg tablet 20 mg PO BID Qty: 10 0RF amoxicillin-pot clavulanate 875-125 mg tablet 1 tab PO BID Qty: 10 0RF cyclobenzaprine 10 mg tablet 10 mg PO Q8H PRN Patient Comments: TAKE ONE TABLET BY MOUTH TWICE DAILY NEEDED folic acid 1 mg tablet 1 mg PO DAILY Patient Comments: TAKE ONE TABLET BY MOUTH ONE TIME DAILY levothyroxine 50 mcg tablet 50 mcg PO DAILY Patient Comments: TAKE ONE TABLET BY MOUTH ONE TIME DAILY methotrexate sodium 2.5 mg tablet 10 mg PO .weekly Patient Comments: TAKE 4 TABLETS BY MOUTH ONCE WEEKLY. pregabalin 150 mg capsule 150 mg PO Q8H Patient Comments: TAKE ONE CAPSULE BY MOUTH THREE TIMES DAILY Rituxan 10 mg/mL concentrate IV hydrocodone-acetaminophen 5-325 mg tablet 1 - 2 tab PO Q6H PRN (Reason: pain) Qty: 10 0RF Follow Up/Referrals: Rylee Ley PA-C [Primary Care Provider] - Stand Alone Forms: [facility] Info Instructions
[2022-12-31 11:26] LABS: PCR FLU A Negative PCR FLU A (Negative); PCR FLU B Negative PCR FLU B (Negative); PCR RSV Negative PCR RSV (Negative); SARS PCR* POSITIVE SARS-CoV-2 (Negative)
--- OUTSIDE RECORDS SUMMARY | 2022-12-31 11:47 | XMS_ITS | Continuity of Care Document ---
Author Name Unknown Organization [facility] Address [address] [place] [address] Phone Care Team Providers Care Structural Welder Name Role Phone Damir Lee DO Unavailable Unavailable Advance Directives Directive Yes / No Effective Date File Name No Information Encounters Encounter Description Practice Location Reason(s) For Visit Diagnoses Date Provider Providers Copied on Encounter [facility], [address], [place], [address], [place] tel:[phone] [facility], No Information 3 Jesus Reich. [facility] [address], [place], [address], [place]. tel:[phone] Family History Family Member Type Diagnosis Age At Onset No Information Payers Payer name Insurance type Covered libertarian ID Authoriza tion(s) No Information Social History Type Description Quantity Date Captured Comments Sex Female Smoking Status No Information Chief Complaint And Reason For Visit No Information Reason For Referral Reason For Referral No Information History Of Present Illness Encounter Date Complaint History Of Prese nt Illness No Information Functional Status Date Functional Assessmen t No Information Instructions Date Instruction Additional Infor mation No Information Assessments Type Assessment Date No Information Patient Care Teams Name Effective Dates (start - stop) Status Members No Information
--- OUTSIDE RECORDS SUMMARY | 2022-12-31 11:47 | XMS_ITS | Continuity of Care Document ---
Author Name Unknown Organization [facility] Address [address] [place] [address] Phone Care Team Providers Care Service Desk Associate Name Role Phone Damir Lee DO Unavailable Unavailable Advance Directives Directive Yes / No Effective Date File Name No Information Encounters Encounter Description Practice Location Reason(s) For Visit Diagnoses Date Provider Providers Copied on Encounter [facility], [address], [place], [address], [place] tel:[phone] [facility], No Information 3 Jesus Reich. [facility] [address], [place], [address], [place]. tel:[phone] Family History Family Member Type Diagnosis Age [...]
--- OUTSIDE RECORDS SUMMARY | 2022-12-31 11:47 | XMS_ITS | Continuity of Care Document ---
Author Name Unknown Organization [facility] Address [address] [place] [address] Phone Care Team Providers Care Tobacco Classer Name Role Phone Will MD VALENZUELA, Sujit Unavailable Unavailabl e Medications Medication Instructions Dosage Effective Dates (start - stop) Status Comments Rituxan 10 mg/mL concentrate,intraven ous infuse (375MG/M2) by intravenous route once 375 MG/M2 - Active pregabalin 150 mg capsule take 1 capsule by oral route 3 times every day 150 MG - Active folic acid 1 mg tablet take 1 tablet by oral route every day 1 MG - Active mirtazapine 15 mg tablet take 1 tablet by oral route every day before bedtime 15 MG - Active levothyroxine 50 mcg capsule take 1 capsule by oral route every day 50 MCG - Active TREXALL (unknown strength) take 1 tablet by oral route every week Not Available - Active Procedures Procedure Date Drug Urine Toxology With Chromatography INJECT TRIGGER POINTS, =/> 3 Kenalog Triamcinolone acetonide inj PT-FOCUSED HLTH RISK ASSMT OFFICE/OUTPATIENT VISIT, NEW Prolong off/op e/m ea 15 min Advance Directives Directive Yes / No Effective Date File Name No Information Encounters Encounter Description Practice Location Reason(s) For Visit Diagnoses Date Provider Providers Copied on Encounter [facility], [address] [place], [id number] , tel:[phone] [facility] No Information Feb-1 7-202 2 Pepito Beckett. [address] [place], [place], [id number] , [place]. tel:[phone] [facility], [address] [place], [place], [id number] , [place] tel:[phone] [facility] [place] No Information 1 Anum Rodrigez. [address] [place] [address] [address], [place], [place], [id number] , [place]. [phone] Referring Provider: Sujit Rascon, [address] [place] [address], [address]. tel:[phone] OFFICE/OUTPA TIENT VISIT, [facility], [address] [place], [place], [id number] , [place] [phone] [facility] low back pain (chief complaint) Chronic pain syndromeEncounter for screening for other disorderIdiopathic peripheral autonomic neuropathyFibromya lgiaLow back painTrochanteric bursitis, right hipTrochanteric bursitis, left hipEncounter for therapeutic drug level monitoringOther rn bsn (current) drug therapyCervicalgia Myalgia, other site 1 Anum Rodrigez. [address] [place] [address] [address], [place], [place], [id number] , [place]. [phone] Referring Provider: [address], [place], [address]. tel:[phone] Family History Family Member Type Diagnosis Age At Onset No Information Payers Payer name Insurance type Covered alliance party ID Authoriza tion(s) No Information Social History Type Description Quantity Date Captured Comments Sex Female Smoking Status No Information Chief Complaint And Reason For Visit No Information Reason For Referral Reason For Referral No Information Plan Of Treatment Date Type Action Status Goal Medication Recon ciliation. Due on due Goal Height. Due on d ue Goal Weight. Due on d ue Goal PHQ-9. Due on du e Goal Update Social Hi story. Due on due Goal Tobacco Use. Due on due Goal Review Allergy L ist. Due on due Goal Medication Recon ciliation. Due on due Goal Height. Due on d ue Goal Update Social Hi story. Due on due Goal Review Allergy L ist. Due on due Goal PHQ-9. Due on du e Goal Tobacco Use. Due on due Goal Weight. Due on d ue Future Order: Radiology Order EM G, 2 Limbs (EMG2), Body Site: lower extremities, Ordered on: Ordered History Of Present Illness Encounter Date Complaint History Of Prese nt Illness low back pain Severity level i s 8. Duration: chronic. It occurs persistently. Location of pain is lower back, legs and hips.The patient describes the pain as an ache and burning. Symptoms are aggravated by ascending stairs, bending, descending stairs, lifting, running, standing, walking and housework. Symptoms are relieved by heat, ice, lying down, pain meds/drugs, stretching, rest and standing. low back pain (comments) Ramya bonilla is here for an initial consult and presents with leg, low back, neck, and hip pain (bilateral bursitis), initial onset 2007. HX of fibromyalgia. 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 Her neurologist diagnosed peripheral neuropathy without an EMG. The pain is located in her feet and legs (up to the knees). This is her most bothersome pain. She feels the neuropathy is now present in her arms as well. She was hospitalized for the pain where they noted possible dementia.Referred by PCP. Previously following up at [facility]. Per pt report, they stooped prescribing opioid therapy due to dementia from hospital report and opioid noncompliance/miscommunication.Treatment Tried:gabapentin for neuropathy - somewhat helpful, now taking lyricaCymbaltacyclobenzaprineibuprofen, naproxen, prednisonePT at [facility], RFAhip injectionsPt goal: [facility] to take over pain management. Functional Status Date Functional Assessmen t No Information Instructions Date Instruction Additional Infor mation No Information Assessments Type Assessment Date No Information Patient Care Teams Name Effective Dates (start - stop) Status Members No Information
--- OUTSIDE RECORDS SUMMARY | 2022-12-31 11:47 | XMS_ITS | Continuity of Care Document ---
Author Name Unknown Organization [facility] Address [address] [place] [address] Phone Care Team Providers Care Rotary Drill Operator Helper Name Role Phone Will Sujit MENESES Unavailable Unavailabl e Medications Medication Instructions Dosage Effective Dates (start - stop) Status Comments TREXALL (unknown strength) take 1 tablet by oral route every week Not Available - Active levothyroxine 50 mcg capsule take 1 capsule by oral route every day 50 MCG - Active mirtazapine 15 mg tablet take 1 tablet by oral route every day before bedtime 15 MG - Active folic acid 1 mg tablet take 1 tablet by oral route every day 1 MG - Active pregabalin 150 mg capsule take 1 capsule by oral route 3 times every day 150 MG - Active Rituxan 10 mg/mL concentrate,intraven ous infuse (375MG/M2) by intravenous route once 375 MG/M2 - Active Procedures Procedure Date Drug Urine Toxology With Chromatography INJECT TRIGGER POINTS, =/> 3 Kenalog Triamcinolone acetonide inj PT-FOCUSED HLTH RISK ASSMT OFFICE/OUTPATIENT VISIT, NEW Prolong off/op e/m ea 15 min Advance Directives Directive Yes / No Effective Date File Name No Information Encounters Encounter Description Practice Location Reason(s) For Visit Diagnoses Date Provider Providers Copied on Encounter [facility], [address] [facility] [place] [id number] , tel:[phone] [facility] No Information Feb-1 7-202 2 Pepito Beckett. [address] [place], [place], [id number] , [place]. tel:[phone] [facility], [address] [place], [place], [id number] , [place] tel:[phone] [facility] [place] No Information 1 Anum Rodrigez. [address] [place] [address] [address], [place], [place], [id number] , [place]. [phone] Referring Provider: Sujit Rascon, [address] [place] [address], [address]. tel:[phone] OFFICE/OUTPA TIENT VISIT, [facility], [address] [place], [place], [id number] , [place] [phone] [facility] low back pain (chief complaint) Chronic pain syndromeEncounter for screening for other disorderIdiopathic peripheral autonomic neuropathyFibromya lgiaLow back painTrochanteric bursitis, right hipTrochanteric bursitis, left hipEncounter for therapeutic drug level monitoringOther skid man (current) drug therapyCervicalgia Myalgia, other site 1 Anum Rodrigez. [address] [place] [address] [address], [place], [place], [id number] , [place]. [phone] Referring Provider: [address], [place], [address]. tel:[phone] Family History Family Member Type Diagnosis Age At Onset No Information Payers Payer name Insurance type Covered green party ID Authoriza tion(s) No Information Social History Type Description Quantity Date Captured Comments Sex Female Smoking Status No Information Chief Complaint And Reason For Visit No Information Reason For Referral Reason For Referral No Information Plan Of Treatment Date Type Action Status Goal Review Allergy L ist. Due on due Goal Tobacco Use. Due on 021 due Goal Update Social Hi story. Due on due Goal PHQ-9. Due on du e Goal Weight. Due on d ue Goal Height. Due on d ue Goal Medication Recon ciliation. Due on due Goal Weight. Due on d ue Goal Tobacco Use. Due on 021 due Goal PHQ-9. Due on du e Goal Review Allergy L ist. Due on due Goal Update Social Hi story. Due on due Goal Height. Due on d ue Goal Medication Recon ciliation. Due on due Future Order: Radiology Order EM G, 2 Limbs (EMG2), Body Site: lower extremities, Ordered on: Ordered History Of Present Illness Encounter Date Complaint History Of Prese nt Illness low back pain (comments) Ramya bonilla is here for an initial consult and presents with leg, low back, neck, and hip pain (bilateral bursitis), initial onset 2007. HX of fibromyalgia. [facility] ordered imaging and diagnosed Mini Donaldo [...] dementia.Referred by PCP. Previously following up at [facility]. Per pt report, they stooped prescribing opioid therapy due to dementia from hospital report and opioid noncompliance/miscommunication.Treatment Tried:gabapentin for neuropathy - somewhat helpful, now taking lyricaCymbaltacyclobenzaprineibuprofen, naproxen, prednisonePT at [facility], RFAhip injectionsPt goal: [facility] to take over pain management. low back pain Severity level i s 8. Duration: chronic. It occurs persistently. Location of pain is lower back, legs and hips.The patient describes the pain as an ache and burning. Symptoms are aggravated by ascending stairs, bending, descending stairs, lifting, running, standing, walking and housework. Symptoms are relieved by heat, ice, lying down, pain meds/drugs, stretching, rest and standing. Functional Status Date Functional Assessmen t No Information Instructions Date Instruction Additional Infor mation No Information Assessments Type Assessment Date No Information Patient Care Teams Name Effective Dates (start - stop) Status Members No Information
== END 2022-12-31 11:53 | disposition home or self-care (01) ==
PROVIDERS: Emergency Provider Family Medicine; PCP Physician Assistant Medical
DX: U07.1 COVID-19 (principal)
CPT/HCPCS: 87631; 99282; 99283